=== PATIENT | male | born 1970 | race Caucasian/White ===

== ENCOUNTER 2016-12-25 10:20 | Inpatient (IN) | payer OTHER ==
[2016-12-23 09:40] LABS: HEMATOCRIT 49.8 % (40.0-51.0)
[~2016-12-25 10:20] MED LIST: LIOR10 PO; NORCO1 TAB PO; WELLXL150 PO; ZANTAC150 MG PO
[2017-02-09] MEDS ORDERED: BYDUREON2 MG SQ (12:46)
[2017-02-09] MEDS ORDERED: COZAAR100 MG PO (12:47)
[2017-02-09] MEDS ORDERED: FARXIGA5 PO (13:04)
== END 2016-12-26 19:40 | disposition home or self-care (01) | DRG 552 ==
LOC: SDC/OF 10:20
PROVIDERS: Orthopaedic Surgery
DX: M48.06 Spinal stenosis, lumbar region (principal); E11.65 Type 2 diabetes mellitus with hyperglycemia; Z53.09 Procedure and treatment not carried out because of other contraindication
CPT/HCPCS: 82962; 85014; 85018; 87641; J1580; J1644; J3370

== ENCOUNTER 2017-02-12 08:11 | Inpatient (IN) | payer OTHER ==
[2017-02-06 15:21] LABS: HEMATOCRIT 49.6 % (40.0-51.0); HEMOGLOBIN 16.4 g/dL (13.6-17.8)
[2017-02-06 15:25] LABS: BUN (BLOOD UREA NITROGEN) 17 MG/DL (6-23); CALCIUM, SERUM 9.3 MG/DL (8.5-10.4); CHLORIDE, SERUM 102 MMOL/L (96-112); CO2 (CARBON DIOXIDE) 30 MMOL/L (24-34); CREATININE 0.92 MG/DL (0.70-1.30); GFR AFRICAN AMERICAN 115 ML/MIN (>=60); GFR NON AFRICAN AMERICAN 99 ML/MIN (>=60); GLUCOSE, SERUM 198 MG/DL (60-99); POTASSIUM, SERUM 4.1 MMOL/L (3.5-5.3); SODIUM, SERUM 139 MMOL/L (135-148)
--- NOTE | ~2017-02-12 | PREOPHP ---
PreOp History and Physical [place] [id number] [facility] [place]. [address] NAME: STONE STEVENSON JR : 70 STATUS : ADM IN PAT#: [id number] AGE: 46 ADM/REG DATE : 02/12/17 MR#: [id number] REPORT SERV DATE: 02/12/17 DICTATED BY: ADAM CONRAD DATE: 02/12/17 REPORT STATUS : Draft TRANSCRIBED BY: STACIE DATE: 02/12/17 CHIEF COMPLAINT: Low back pain and bilateral lower extremity pain. HISTORY OF PRESENT ILLNESS: The patient is a 46-year-old. He has intractable back and lower extremity pain. The legs give out on him. He has gait disturbance. He has failed multiple attempts at conservative treatment and after discussion of risks and benefits, he elects to proceed with surgical intervention. REVIEW OF SYSTEMS: He denies chest pain, shortness of breath, and bowel or bladder changes. ALLERGIES: INCLUDE PENICILLIN, VALIUM, AND TETANUS. HOME MEDICATIONS: Baclofen, fish oil, garlic, hydrocodone, ibuprofen, multivitamin, omeprazole, Topamax, Voltaren gel. PAST MEDICAL HISTORY: Otherwise denied. FAMILY HISTORY: Noncontributory. PHYSICAL EXAMINATION: VITAL SIGNS: Height 6 feet 2 inches, weight 225, BMI 28.9. GENERAL: The patient is healthy appearing. No acute distress. PSYCH: Alert and oriented x3. Normal mood and affect. Gait is antalgic. VASCULAR: No extremity swelling. SPINE: Decreased lumbar motion. HEART: Regular rate and rhythm. LUNGS: Clear to auscultation. ABDOMEN: Soft, nontender, nondistended. Good bowel sounds. BREASTS AND RECTAL: Both deferred. NEUROLOGIC: Strength in the lower extremities is 4/5 bilaterally. The patient is using a cane for balance. IMAGING: I have reviewed plain x-rays and CT scan. He does have solid-appearing fusion at L4 through S1, but has continued rather severe stenosis L4 through S1 and the foramen. He also has degenerative disk disease with stenosis, L3-L4. ASSESSMENT: L3-L4 disk disease and stenosis. Continued stenosis, L4 through S1. Lumbar radiculopathy. Lower extremity weakness. Gait disturbance. PLAN: The patient presents today for surgical intervention. Consent was obtained. All questions were answered, ready to proceed. ALONDRA/STACIE PreOp History and Physical [address] [place]. [address] NAME: STONE STEVENSON JR : 70 STATUS : ADM IN PAT#: [id number] AGE: 46 ADM/REG DATE : 02/12/17 MR#: [id number] REPORT SERV DATE: 02/12/17 DICTATED BY: ADAM CONRAD DATE: 02/12/17 REPORT STATUS : Draft TRANSCRIBED BY: STACIE DATE: 02/12/17 Adam Conrad DO / [id number] CC: Adam Conrad DO
--- NOTE | ~2017-02-12 | CN ---
Consultation Report [facility] [address] [place]. [address] NAME: STONE STEVENSON JR : 70 STATUS : ADM IN PAT#: [id number] AGE: 46 ADM/REG DATE : 02/12/17 MR#: [id number] REPORT SERV DATE: 02/13/17 DICTATED BY: MELVA MC DATE: 02/13/17 REPORT STATUS : Draft TRANSCRIBED BY: MODVicky DATE: 02/13/17 CONSULTATION DATE OF CONSULTATION: 02/12/2017 REASON FOR CONSULTATION: Consulted for diabetes management. IDENTIFYING DATA: 1. Primary care physician, the patient sees Dr. Micheal Nelson at the Urgent Care. 2. Previous surgeon, Tico Urrutia D.D.S. 3. Pain management, Dr. Mckeon. HISTORY OF PRESENT ILLNESS: This is a pleasant 46-year-old male who is admitted to Dr. Adam Frazier with low back pain, bilateral lower extremity pain and weakness, and gait disturbance. He is presently status post L4-S1 revision open laminectomy, bilateral foraminotomies, L3-L4 lumbar interbody fusion, placement of L3-L4 interbody spacer and pedicle screw. The hospitalist group has been consulted postoperatively to manage the patient's diabetes while he is inpatient. The patient presently takes a daily dose of Farxiga as well as exenatide every seven days which is on Thursday. Both medications are held and to be restarted on Thursday. Presently, his blood sugars have been 163, 209, and 171. The patient's history was obtained through interview with the patient as well as [facility] client support consultant notes and old medical records. PAST MEDICAL HISTORY: 1. The patient states he has had a problem with anesthesia in the past and waking up. 2. GERD. 3. History of H. pylori. 4. Chronic lumbar pain. 5. Anxiety. 6. Depression. 7. Hypertension for which the patient states he has been borderline in the past. 8. Mitral valve prolapse diagnosed at 12 years old which is stable. 9. Diabetes type 2 diagnosed in 11/2016. HOME MEDICATIONS: 1. Baclofen 10 mg p.o. three times a day p.r.n. back spasms. 2. Farxiga 5 mg p.o. daily. 3. Exenatide 2 mg subcutaneous every seven days on Thursday. 4. Moraga 10/325 one tablet p.o. every four hours p.r.n. for pain. 5. Cozaar 100 mg p.o. daily. 6. Zantac 150 mg p.o. twice a day. ALLERGIES: TO PENICILLIN, TETANUS, AND VALIUM. Consultation Report [place] [address] [place]. [address] NAME: STONE STEVENSON JR : 70 STATUS : ADM IN PAT#: [id number] AGE: 46 ADM/REG DATE : 02/12/17 MR#: [id number] REPORT SERV DATE: 02/13/17 DICTATED BY: MELVA MC DATE: 02/13/17 REPORT STATUS : Draft TRANSCRIBED BY: STACIE DATE: 02/13/17 SOCIAL HISTORY: The patient is engaged and has four children. He has a home with stairs, but is able to get around without difficulty. He is a smoker of one pack per day. Alcohol use is very rare. 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 FAMILY HISTORY: 1. The patient has three sisters who have no significant health problems. 2. Mother who is alive and healthy. 3. Father who is and had TB as well as cancer. SURGICAL HISTORY: 1. Lumbar surgery in 1993, 2012, and again in 2017. The patient states he has had approximately his back surgery done twice in 1993, twice in 2012, and now presently in 2017. 2. Previous left knee surgery. 3. Benign lesion removed from his right jaw in 06/10/2005. 4. Tonsillectomy and adenoidectomy as a child. REVIEW OF SYSTEMS: A full 10-point review of systems is obtained and pertinent positives are in HPI, otherwise negative other systems. The patient is alert and oriented x3. He has no nausea and vomiting presently. No abdominal pain. Denies chest pain. No fever. Denies shortness of breath. No confusion or agitation. PHYSICAL EXAMINATION: VITAL SIGNS: Vital signs from today; blood pressure was 90/60 postoperatively, respiratory rate 23, heart rate 74, temperature 97.9, O2 saturation 90% on room air. 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 NEUROLOGIC: His head is atraumatic, normocephalic. He is alert and oriented x3. His cranial nerves 2 through 12 are grossly intact. His mood is appropriate. NECK: Supple. Trachea is midline. No JVD noted. No obvious thyromegaly or lymphadenopathy. EENT: Sclerae are nonicteric. Pupils are equal and reactive to light. Mucous membranes are moist. Tongue is midline without deviation. Soft palate rises equally with phonation. CHEST: No pain with palpation. LUNGS: Clear to auscultation bilaterally. The patient has normal respiratory effort. No increased work of breathing with conversation. CARDIOVASCULAR: S1, S2. The patient is on defensive monitoring which shows a sinus rhythm with a rate at 74. ABDOMEN: Soft, nontender. He has hypoactive bowel sounds, but no palpable organomegaly. His last bowel movement was on 02/12/2017. EXTREMITIES: Normal distal pulses. No calf tenderness. No edema. He has bilateral TEDs and SCDs in place for DVT prophylaxis. SKIN: Warm and dry. No unusual rashes or lesions. Normal color and turgor. PSYCHIATRIC: The patient is cooperative. Appropriate mood and affect. Consultation Report [place] [id number] [facility] [place]. [address] NAME: STONE STEVENSON : 70 STATUS : ADM IN [facility]#: [id number] AGE: 46 ADM/REG DATE : 02/12/17 MR#: [id number] REPORT SERV DATE: 02/13/17 DICTATED BY: MELVA MC DATE: 02/13/17 REPORT STATUS : Draft TRANSCRIBED BY: STACIE DATE: 02/13/17 SURGICAL WOUND SITE: Dressing is clean, dry, and intact. He has a Davol drain compressed with sanguinous drainage noted. LABORATORY DATA: Sodium 139, potassium 4.8, chloride 105, BUN 16, creatinine 0.85, GFR 121, glucose 216, calcium 8.3. White blood cell 13.5, hemoglobin 14.0, hematocrit 43.0, platelets 148. Blood sugars presently were 216, 163, 209, 171. He has a portable chest x- ray ordered that is pending. He also has an ECG that is ordered that is pending. His present potassium was 4.8 to which we discontinued the potassium from his IV fluids. ASSESSMENT AND PLAN: 1. Diabetes type 2. The patient's blood sugars he states runs 135 to 185. He is on Farxiga and exenatide at home, but they are on hold until Thursday. He is placed on an 1800-ADA calorie diet. We will have blood sugars checked before meals and at bedtime with a sliding scale level 2 with a hypoglycemic protocol. We will have a peer educator. Discuss diet and appropriate monitoring since he was newly diagnosed in 11/2016. We will check a hemoglobin A1c with the next laboratory draw. 2. Hypertension. Aware. The patient does not relate that he is hypertensive. He is on losartan daily as a home medication. Presently, his blood pressure is 90/60. We will give him normal saline 500 mL bolus x1. He will continue his losartan in the a.m. or when his blood pressure stabilizes. 3. Gastroesophageal reflux disease. Aware. The patient does have chronic gastroesophageal reflux disease and we will continue his Pepcid b.i.d. 4. Tobacco abuse. Aware. The patient smokes one pack per day. We will have O2 to keep his sats 92% or greater. We will order a Habitrol patch daily for his smoking. 5. Labs: BMP, magnesium, phosphorus, CBC, hemoglobin A1c, EKG, and portable chest x-ray, pending. The hospitalist group would like to thank you for this consultation. Please let us know if we can be of further assistance. ROSALVA Melva Mc NP / [id number] CC: Adam Frazier DO
--- NOTE | ~2017-02-12 | OP ---
Record Of Operation [facility] [address] [place]. [address] NAME: STONE STEVENSON JR : 70 STATUS : ADM IN PAT#: [id number] AGE: 46 ADM/REG DATE : 02/12/17 MR#: [id number] REPORT SERV DATE: 02/12/17 DICTATED BY: ADAM FRAZIER DATE: 02/12/17 REPORT STATUS : Draft TRANSCRIBED BY: STACIE DATE: 02/12/17 DATE OF PROCEDURE: 02/12/2017 PREOPERATIVE DIAGNOSES: 1. Recurrent stenosis, L4 through S1. 2. L3 stenosis. 3. L3-L4 disk disease. 4. Prior L4-S1 anterior lumbar interbody fusion with posterior laminotomy. 5. Lumbar radiculopathy. POSTOPERATIVE DIAGNOSES: 1. Recurrent stenosis, L4 through S1. 2. L3 stenosis. 3. L3-L4 disk disease. 4. Prior L4-S1 anterior lumbar interbody fusion with posterior laminotomy. 5. Lumbar radiculopathy. PROCEDURES: 1. L4 through S1 revision open laminectomy and bilateral foraminotomies. 2. L3 primary laminectomy. 3. L3-L4 transforaminal lumbar interbody fusion. 4. Placement of Medtronic PEEK interbody spacer, L3-L4. 5. Placement of pedicle screw instrumentation bilaterally, L3-L4. 6. Local morselized autograft. 7. Allograft bone matrix. 8. Neuromonitoring. 9. Intraoperative O-arm CT scan with computer navigation. ANESTHESIA: General. ESTIMATED BLOOD LOSS: 600 mL. COMPLICATIONS: None. INDICATIONS: The patient is a 46-year-old with intractable back and leg pain, failed conservative treatment. After discussion of the risks and benefits, elected to proceed with surgery. DESCRIPTION OF PROCEDURE: I identified the patient in the holding area. Consent was obtained. Went to the operating room. Underwent general anesthesia with endotracheal intubation. Prepped and draped in the usual sterile fashion. Operative safety pause was performed, then we proceeded with the surgery. A midline longitudinal incision was made, L3 down to S1 taken to the fascial layer. Paraspinous muscles were subperiosteally elevated to the tips of transverse processes. Self-retaining retractors were placed. O-arm registration frame was placed on the spinous process. O-arm was brought in for intraoperative O-arm CT scan. Computer registration materials were verified. Under Record Of Operation [facility] [address] [place]. [address] NAME: STONE STEVENSON JR : 70 STATUS : ADM IN PAT#: [id number] AGE: 46 ADM/REG DATE : 02/12/17 MR#: [id number] REPORT SERV DATE: 02/12/17 DICTATED BY: ADAM FRAZIER DATE: 02/12/17 REPORT STATUS : Draft TRANSCRIBED BY: STACIE DATE: 02/12/17 computer guidance, pedicle screws from Medtronic were placed at L3 and L4 bilaterally. O- arm was brought back in to verify good placement of instrumentation. Rongeur was used to remove spinous processes and underlying lamina at L3. Kerrison removed remaining lamina and performed foraminotomies at the L3-L4 level. Revision laminectomy and foraminotomies were performed from L4 down to S1. Severe nerve compression was found at each level. The right- sided L3-L4 disk space was identified and incised with a knife. Interspace was prepared with endplate cutters, curettes, and a rasp. Irrigation was performed. Trial spacers were implanted. Then, local morcellized autograft, allograft bone matrix, and a Medtronic PEEK interbody spacer with allograft bone matrix were all packed into the L3-L4 interspace. Rods were then placed over the screws at L3-L4 bilaterally. Setscrews were placed and final tightened. High-speed marylou was used to decorticate the remaining bony surfaces at L3-L4. Irrigation was performed. Hemostasis was achieved. Local morcellized autograft and allograft bone matrix were packed over the decorticated surfaces at L3-L4. Subfascial drain was placed. A gram of vancomycin powder was sprinkled over the surgical wound. Layered closure was performed. Sterile dressings were applied. The patient was awoken and extubated, and taken to the recovery room in stable condition. OPERATIVE FINDINGS: L3-S1 stenosis, L3-4 disk disease. No sustained neuromonitoring alerts. ALONDRA/STACIE Adam Frazier, / [id number] CC: Adam Frazier DO
[~2017-02-12 08:11] MED LIST changes: +BYDUREON2 MG SQ; +COZAAR100 MG PO; +FARXIGA5 PO
[2017-02-12 15:15] LABS: BASOPHILS 0.1 %; BASOPHILS ABSOLUTE 0.02 10/3/uL (0.0-0.16); EOSINOPHILS 1.4 %; EOSINOPHILS ABSOLUTE 0.19 10/3/uL (0.0-0.53); IMMATURE GRANULOCYTES 0.7 %; IMMATURE GRANULOCYTES ABSOLUTE 0.09 10/3/uL (0.0-0.11); LYMPHOCYTES 27.7 %; LYMPHOCYTES ABSOLUTE 3.74 10/3/uL (0.67-4.30); MEAN CORPUS HGB CONC 32.6 g/dL (32.0-36.0); MEAN PLATELET VOLUME 12.1 fL (9.2-13.0); MONOCYTES 4.7 %; MONOCYTES ABSOLUTE 0.63 10/3/uL (0.21-1.20); NEUTROPHILS 65.4 %; NEUTROPHILS ABSOLUTE 8.82 10/3/uL (2.02-8.40); PLATELET COUNT 148 10/3/uL (150-400); RBC DISTRIBUTION WIDTH 14.3 % (12.0-16.0); RED CELL COUNT 4.83 10/6/uL (4.7-6.1)
[2017-02-12 15:16] LABS: MANUAL DIFF NO %; WHITE BLOOD CELLS 13.5 10/3/uL (4.5-10.5)
[2017-02-12 15:29] LABS: BUN (BLOOD UREA NITROGEN) 16 MG/DL (6-23); CALCIUM, SERUM 8.3 MG/DL (8.5-10.4); CHLORIDE, SERUM 105 MMOL/L (96-112); CO2 (CARBON DIOXIDE) 26 MMOL/L (24-34); CREATININE 0.85 MG/DL (0.70-1.30); GFR AFRICAN AMERICAN 121 ML/MIN (>=60); GFR NON AFRICAN AMERICAN 104 ML/MIN (>=60); GLUCOSE, SERUM 216 MG/DL (60-99); POTASSIUM, SERUM 4.8 MMOL/L (3.5-5.3); SODIUM, SERUM 139 MMOL/L (135-148)
[2017-02-13 04:33] LABS: BASOPHILS 0.1 %; BASOPHILS ABSOLUTE 0.01 10/3/uL (0.0-0.16); EOSINOPHILS 0.4 %; EOSINOPHILS ABSOLUTE 0.06 10/3/uL (0.0-0.53); HEMOGLOBIN 12.6 g/dL (13.6-17.8); IMMATURE GRANULOCYTES 0.4 %; IMMATURE GRANULOCYTES ABSOLUTE 0.06 10/3/uL (0.0-0.11); LYMPHOCYTES ABSOLUTE 2.13 10/3/uL (0.67-4.30); MEAN CORPUS HGB CONC 32.6 g/dL (32.0-36.0); MEAN CORPUSCULAR HEMOGLOB 29.3 pg (26.0-34.0); MEAN CORPUSCULAR VOLUME 89.8 fL (80-100); MONOCYTES 6.4 %; MONOCYTES ABSOLUTE 1.04 10/3/uL (0.21-1.20); NEUTROPHILS 79.7 %; NEUTROPHILS ABSOLUTE 13.06 10/3/uL (2.02-8.40); PLATELET COUNT 143 10/3/uL (150-400); RBC DISTRIBUTION WIDTH 14.2 % (12.0-16.0); WHITE BLOOD CELLS 16.4 10/3/uL (4.5-10.5)
[2017-02-13 04:34] LABS: HEMATOCRIT 38.6 % (40.0-51.0); MANUAL DIFF NO %
[2017-02-13 04:52] LABS: BUN (BLOOD UREA NITROGEN) 13 MG/DL (6-23); CALCIUM, SERUM 8.1 MG/DL (8.5-10.4); CHLORIDE, SERUM 100 MMOL/L (96-112); CO2 (CARBON DIOXIDE) 30 MMOL/L (24-34); CREATININE 0.78 MG/DL (0.70-1.30); GFR AFRICAN AMERICAN 125 ML/MIN (>=60); GFR NON AFRICAN AMERICAN 108 ML/MIN (>=60); PHOSPHORUS, SERUM 3.5 MG/DL (2.5-4.5); POTASSIUM, SERUM 4.2 MMOL/L (3.5-5.3); SODIUM, SERUM 134 MMOL/L (135-148)
[2017-02-13 04:54] LABS: GLUCOSE, SERUM 138 MG/DL (60-99)
[2017-02-14 04:55] LABS: BASOPHILS 0.1 %; BASOPHILS ABSOLUTE 0.01 10/3/uL (0.0-0.16); EOSINOPHILS 0.9 %; EOSINOPHILS ABSOLUTE 0.11 10/3/uL (0.0-0.53); HEMATOCRIT 39.2 % (40.0-51.0); HEMOGLOBIN 12.6 g/dL (13.6-17.8); IMMATURE GRANULOCYTES 0.3 %; IMMATURE GRANULOCYTES ABSOLUTE 0.04 10/3/uL (0.0-0.11); LYMPHOCYTES 15.2 %; LYMPHOCYTES ABSOLUTE 1.87 10/3/uL (0.67-4.30); MEAN CORPUS HGB CONC 32.1 g/dL (32.0-36.0); MEAN CORPUSCULAR HEMOGLOB 28.6 pg (26.0-34.0); MEAN CORPUSCULAR VOLUME 89.1 fL (80-100); MEAN PLATELET VOLUME 11.9 fL (9.2-13.0); MONOCYTES 10.1 %; MONOCYTES ABSOLUTE 1.24 10/3/uL (0.21-1.20); NEUTROPHILS 73.4 %; NEUTROPHILS ABSOLUTE 9.02 10/3/uL (2.02-8.40); PLATELET COUNT 141 10/3/uL (150-400); RBC DISTRIBUTION WIDTH 14.1 % (12.0-16.0); WHITE BLOOD CELLS 12.3 10/3/uL (4.5-10.5)
[2017-02-14 04:56] LABS: MANUAL DIFF NO %
[2017-02-14 05:01] LABS: BUN (BLOOD UREA NITROGEN) 10 MG/DL (6-23); CALCIUM, SERUM 8.3 MG/DL (8.5-10.4); CHLORIDE, SERUM 99 MMOL/L (96-112); CO2 (CARBON DIOXIDE) 31 MMOL/L (24-34); GFR AFRICAN AMERICAN 131 ML/MIN (>=60); GFR NON AFRICAN AMERICAN 113 ML/MIN (>=60); GLUCOSE, SERUM 176 MG/DL (60-99); POTASSIUM, SERUM 3.9 MMOL/L (3.5-5.3); SODIUM, SERUM 135 MMOL/L (135-148)
[2017-02-14] MEDS ORDERED: PCET PO (14:17)
== END 2017-02-14 14:57 | disposition home or self-care (01) | DRG 460 ==
LOC: SDC/OF 08:11 → 3SO 16:45
PROVIDERS: Nurse Practitioner Acute Care; Orthopaedic Surgery
PROC: 0SG00AJ Fusion of Lumbar Vertebral Joint with Interbody Fusion Device, Posterior Approach, Anterior Column, Open Approach (ICD-10-PCS; principal; 2017-02-12 10:30)
PROC: 4A11X4G Monitoring of Peripheral Nervous Electrical Activity, Intraoperative, External Approach (ICD-10-PCS; 2017-02-12 10:30)
DX: M96.0 Pseudarthrosis after fusion or arthrodesis (principal); I10 Essential (primary) hypertension; M51.16 Intervertebral disc disorders with radiculopathy, lumbar region; E11.9 Type 2 diabetes mellitus without complications; K21.9 Gastro-esophageal reflux disease without esophagitis; F17.210 Nicotine dependence, cigarettes, uncomplicated
CPT/HCPCS: 71010; 80048; 82962; 83036; 83735; 84100; 85014; 85018; 85025; 87641; 88300; 88304; 88311; 93005; 97116-GP; 97161-GP; A9270-GY; C1713; J0330; J1170; J1580; J1644; J2250; J2405; J2710; J3010; J3370